=== PATIENT | male | born 1955 | race Caucasian/White ===

== ENCOUNTER 2022-07-03 14:51 | Emergency (ER) | payer OTHER ==
[~2022-07-03] VITALS: Ht 177 cm; Wt 95.0 kg
--- NOTE | 2022-07-03 15:19 | ED Cough/URI ---
General Chief Complaint: Cough/Cold/Flu Symptoms Stated Complaint: FLU-LIKE SYMPTOMS Nursing Triage Note: PT STATES COUGH FOR A FEW DAYS, DIARRHEA, BODY ACHES AND CHILLS, STATES NEG COVID TEST AT WORK Source: patient Exam Limitations: no limitations History of Present Illness Date Seen by Provider: Jul 03, 2022 Time Seen by Provider: 15:15 Initial Comments Patient is a 67-year-old male with a history of high cholesterol, DVT, PE, GERD who presents the ED with flulike symptoms. Started 2 weeks ago with body aches, chills, weakness, cough. Symptoms became worse over the past 2 or 3 days. States he is having chills feeling feverish at home. Nausea without vomiting or diarrhea. Reports worsening cough with clear sputum production. Some shortness of breath with a cough. Denies history of coronary artery disease, CHF, COPD or asthma. Has been taking Mucinex extra strength at home without much improvement. No one else at home with similar symptoms. Had a negative COVID swab today. 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 Patient denies chest pain, abdominal pain, back pain with dysuria, hematuria, headache, dizziness, sore throat, ear pain Allergies and Home Medications Allergies Coded Allergies: No Known Drug Allergies (Unverified , 07/03/22) Patient Home Medication List Home Medication List Reviewed: Yes Benzonatate (Tessalon Perles) 100 Mg Capsule, 200 MG PO TID Prescribed by: ANNE TREVIZO on 07/03/22 165 Doxycycline Monohydrate (Doxycycline Monohydrate) 100 Mg Capsule, 100 MG PO BID Prescribed by: ANNE TREVIZO on 07/03/22 165 Prednisone (Prednisone) 20 Mg Tab, 40 MG PO DAILY Prescribed by: ANNE TREVIZO on 07/03/22 1702 Review of Systems Review of Systems Constitutional: No chills, No diaphoresis, No malaise EENTM: No ear pain, No mouth pain Respiratory: cough, short of breath Cardiovascular: No chest pain Gastrointestinal: No abdominal pain, No diarrhea; nausea; No vomiting Genitourinary: No decreased output, No discharge Musculoskeletal: No back pain, No joint pain Skin: No change in color, No change in hair/nails All Other Systems Reviewed Negative Unless Noted: Yes Past Iihdiys-Sanxil-Zsmlph Hx Patient Social History Tobacco Use?: Yes Smoking Status: Former Smoker Substance use?: No Alcohol Use?: No Past Medical History Surgery/Hospitalization HX: ANGELLA, RT SHOULDER Physical Exam Vital Signs - First Documented 07/03/22 15:02 Temp 37.3 Pulse 85 Resp 20 B/P (MAP) 149/85 (106) Pulse Ox 94 O2 Delivery Room Air Capillary Refill : Less Than 3 Seconds Height: '" Weight: lbs. oz. kg; 30.00 BMI Method: General Appearance: WD/WN, no apparent distress Eyes: Bilateral Eye Normal Inspection, Bilateral Eye PERRL, Bilateral Eye EOMI HEENT: PERRL/EOMI, normal ENT inspection, TMs normal, pharynx normal Neck: non-tender, full range of motion, supple, normal inspection Respiratory: chest non-tender, lungs clear, normal breath sounds, no respiratory distress, no accessory muscle use Cardiovascular: regular rate, rhythm, no edema, no gallop, no JVD Gastrointestinal: normal bowel sounds, non tender, soft, no organomegaly Extremities: normal range of motion, non-tender, normal inspection, no pedal edema 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, no motor/sensory deficits, alert, normal mood/affect, oriented x 3 Skin: normal color, warm/dry Progress/Results/Core Measures Suspected Sepsis SIRS Temperature: Pulse: 85 Respiratory Rate: 20 Laboratory Tests 07/03/22 15:19: White Blood Count 9.6 Blood Pressure 149 /85 Mean: 106 Laboratory Tests 07/03/22 15:19: Creatinine 0.87, Platelet Count 286, Total Bilirubin 0.5 Results/Orders Lab Results Laboratory Tests Test 07/03/22 15:03 07/03/22 15:19 Range/Units Influenza Type A (RT-PCR) Not Detected Not Detecte Influenza Type B (RT-PCR) Not Detected Not Detecte SARS-CoV-2 RNA (RT-PCR) Not Detected Not Detecte White Blood Count 9.6 4.3-11.0 10^3/uL Red Blood Count 5.08 4.30-5.52 10^6/uL Hemoglobin 14.6 13.3-17.7 g/dL Hematocrit 45 40-54 % Mean Corpuscular Volume 88 80-99 fL Mean Corpuscular Hemoglobin 29 25-34 pg Mean Corpuscular Hemoglobin Concent 33 32-36 g/dL Red Cell Distribution Width 13.6 10.0-14.5 % Platelet Count 286 130-400 10^3/uL Mean Platelet Volume 9.3 9.0-12.2 fL Immature Granulocyte % (Auto) 1 % Neutrophils (%) (Auto) 69 42-75 % Lymphocytes (%) (Auto) 19 12-44 % Monocytes (%) (Auto) 8 0-12 % Eosinophils (%) (Auto) 3 0-10 % Basophils (%) (Auto) 0 0-10 % Neutrophils # (Auto) 6.6 1.8-7.8 10^3/uL Lymphocytes # (Auto) 1.9 1.0-4.0 10^3/uL Monocytes # (Auto) 0.8 0.0-1.0 10^3/uL Eosinophils # (Auto) 0.3 0.0-0.3 10^3/uL Basophils # (Auto) 0.0 0.0-0.1 10^3/uL Immature Granulocyte # (Auto) 0.1 0.0-0.1 10^3/uL Sodium Level 138 135-145 MMOL/L Potassium Level 4.4 3.6-5.0 MMOL/L Chloride Level 104 98-107 MMOL/L Carbon Dioxide Level 24 21-32 MMOL/L Anion Gap 10 5-14 MMOL/L Blood Urea Nitrogen 19 H 7-18 MG/DL Creatinine 0.87 0.60-1.30 MG/DL Estimat Glomerular Filtration Rate 93 BUN/Creatinine Ratio 22 Glucose Level 125 H 70-105 MG/DL Calcium Level 9.5 8.5-10.1 MG/DL Corrected Calcium 9.2 8.5-10.1 MG/DL Total Bilirubin 0.5 0.1-1.0 MG/DL Aspartate Amino Transf (AST/SGOT) 20 5-34 U/L Alanine Aminotransferase (ALT/SGPT) 19 0-55 U/L Alkaline Phosphatase 64 40-136 U/L B-Type Natriuretic Peptide 18.4 <100.0 PG/ML Total Protein 8.2 6.4-8.2 GM/DL Albumin 4.4 3.2-4.5 GM/DL My Orders Orders - CATERINA HUTCHISON 19 Inhouse Test (07/03/22 14:55) Influenza A And B By Pcr (07/03/22 14:55) Cbc With Automated Diff (07/03/22 15:14) Comprehensive Metabolic Panel (07/03/22 15:14) Chest 1 View, Ap/Pa Only (07/03/22 15:14) Iv/Invasive Line Insertion .IV INSERT (07/03/22 15:14) Bnp [place] (07/03/22 15:14) Methylprednisolone Sod Succ (Solu-Medrol (07/03/22 15:30) Albuterol/Ipra Inhalation Soln (Duoneb I (07/03/22 15:30) Svn Small Volume Nebulizer (07/03/22 15:19) Albuterol Pre-Mix Nebs (Rt) (Proventil (07/03/22 16:45) Svn Small Volume Nebulizer (07/03/22 16:31) Rx-Doxycycline Tablet (Rx-Vibramycin Tab (07/03/22 16:45) Rx-Albuterol Inhaler (Rx-Ventolin Hfa In (07/03/22 16:45) Medications Given in ED Current Medications Medications Dose Ordered Sig/Michelle Route Start Time Stop Time Status Last Admin Dose Admin Albuterol Sulfate 1 gm ONCE ONCE IH 07/03/22 16:45 07/03/22 16:46 DC 07/03/22 16:46 1 GM Albuterol Sulfate 2.5 mg ONCE ONCE INH 07/03/22 16:45 07/03/22 16:46 DC 07/03/22 16:44 2.5 MG Albuterol/ Ipratropium 3 ml ONCE ONCE INH 07/03/22 15:30 07/03/22 15:31 DC 07/03/22 15:27 3 ML Doxycycline Hyclate 100 mg ONCE ONCE PO 07/03/22 16:45 07/03/22 16:46 DC 07/03/22 16:46 100 MG Methylprednisolone Sodium Succinate 80 mg ONCE ONCE IV 07/03/22 15:30 07/03/22 15:31 DC 07/03/22 15:26 80 MG Vital Signs/I&O 07/03/22 07/03/22 07/03/22 15:02 15:10 17:03 Temp 37.3 37.1 Pulse 85 103 Resp 20 20 B/P (MAP) 149/85 (106) 116/73 Pulse Ox 94 97 O2 Delivery Room Air Room Air Room Air Capillary Refill : Less Than 3 Seconds Blood Pressure Mean: 106 Departure Communication (PCP) No previous ER visits or outpatient records to review. History of high cholesterol, GERD, DVT and PE. No history of coronary artery disease, CHF, COPD, asthma. Patient with flulike symptoms for the past 2 weeks. Worsening cough and shortness of breath over the past 2 days. Denies of any chest pain, abdominal pain, vomiting or diarrhea. Patient is afebrile, stable vital signs. Diminished lung sounds bilateral. He has no abdominal tenderness. Differential diagnosis of viral syndrome, pneumonia, bronchitis, reactive airway disease, chf due to worsening symptoms, age, CBC, CMP, BNP and chest x-ray was ordered. CBC and CMP was otherwise unremarkable. Normal BNP. Chest x-ray was negative for pneumonia, pneumothorax. Patient Was given a DuoNeb breathing treatment with IV Solu-Medrol with improvement of breath sounds and the feeling of shortness of breath. Patient oxygen remained in the lower 90s between 92 to 94%. Patient Was given a second breathing treatment of albuterol with improvement near 98%. He states that breathing feels much better at this time after the second breathing treatment. He has no history of COPD or asthma. COVID and influenza was negative. Suspect viral versus atypical infection. Due to worsening cough and potential atypical infection patient will be discharged with doxycycline, albuterol. Patient was requesting something for the cough. We will provide Tessalon Perles. Patient lives in [place]. Sent prescription to the [facility] pharmacy. Recommend follow-up your PCP in 2 to 3 days for reevaluation. Return precaution were discussed. Impression Primary Impression: Upper respiratory infection Disposition: 01 HOME, SELF-CARE Condition: Stable Departure-Patient Inst. Decision time for Depature: 16:20 Referrals: [facility] NO,LOCAL PHYSICIAN (PCP) Primary Care Physician Patient Instructions: Acute Bronchitis, Adult (DC) Scripts Prednisone (Prednisone) 20 Mg Tab 40 MG PO DAILY for 4 Days, #8 TAB Prov: CATERINA HUTCHISON 07/03/22 Benzonatate (TESSALON PERLES) 100 Mg Capsule 200 MG PO TID, #16 CAP Prov: CATERINA HUTCHISON 07/03/22 Doxycycline Monohydrate (Doxycycline Monohydrate) 100 Mg Capsule 100 MG PO BID for 6 Days, #12 CAP Prov: CATERINA HUTCHISON 07/03/22 CATERINA HUTCHISON Jul 03, 2022 15:19
[2022-07-03] MEDS ORDERED: methylPREDNISolone 40 MG/ML (Solu-MEDROL) VIAL IV ONE (15:30)
[2022-07-03] MEDS ORDERED: RT-ALBUTEROL/IPRATROPIUM 3 ML (DUONEB) VIAL INH ONE (15:30)
[2022-07-03 15:31] LABS: BASOPHILS % (AUTO) 0 % (0-10); EOSINOPHILS # (AUTO) 0.3 10^3/uL (0.0-0.3); EOSINOPHILS % (AUTO) 3 % (0-10); HEMATOCRIT 45 % (40-54); HEMOGLOBIN 14.6 g/dL (13.3-17.7); LYMPHOCYTES # (AUTO) 1.9 10^3/uL (1.0-4.0); LYMPHOCYTES % (AUTO) 19 % (12-44); MEAN CORPUSCULAR HEMOGLOBIN 29 pg (25-34); MEAN CORPUSCULAR HGB CONC 33 g/dL (32-36); MEAN CORPUSCULAR VOLUME 88 fL (80-99); MEAN PLATELET VOLUME 9.3 fL (9.0-12.2); MONOCYTES # (AUTO) 0.8 10^3/uL (0.0-1.0); MONOCYTES % (AUTO) 8 % (0-12); NEUTROPHILS # (AUTO) 6.6 10^3/uL (1.8-7.8); NEUTROPHILS % (AUTO) 69 % (42-75); PLATELET COUNT 286 10^3/uL (130-400); WHITE BLOOD COUNT 9.6 10^3/uL (4.3-11.0)
[2022-07-03 15:39] LABS: ALBUMIN 4.4 GM/DL (3.2-4.5); POTASSIUM 4.4 MMOL/L (3.6-5.0)
[2022-07-03 15:40] LABS: CALCIUM 9.5 MG/DL (8.5-10.1)
--- NOTE | 2022-07-03 15:40 | Diagnostic Imaging Report ---
Indication: Cough Findings: Lungs clear. No failure, effusion or pneumothorax. Impression: No acute-appearing abnormality. Dictated by: Dictated on workstation # [id number]
[2022-07-03 15:41] LABS: TOTAL PROTEIN 8.2 GM/DL (6.4-8.2)
[2022-07-03 15:43] LABS: BILIRUBIN,TOTAL 0.5 MG/DL (0.1-1.0)
[2022-07-03 15:45] LABS: CREATININE SERUM 0.87 MG/DL (0.60-1.30)
[2022-07-03] MEDS ORDERED: RT-ALBUTEROL SULF 2.5 MG/3 ML PRE-MIX VIAL INH ONE (16:45)
[2022-07-03] MEDS ORDERED: RX-ALBUTEROL INHALER 8.5 GM HFA (PROAIR) IH ONE (16:45)
[2022-07-03] MEDS ORDERED: RX-DOXYCYCLINE 100 MG (VIBRAMYCIN) TAB PPK#2 PO ONE (16:45)
[2022-07-03] MEDS ORDERED: DOXY-444 PO (16:59)
[2022-07-03] MEDS ORDERED: BENZ100C18 PO (16:59)
[2022-07-03] MEDS ORDERED: PRD20T PO (17:02)
[2022-07-03 17:03] VITALS: BP 116/73
== END 2022-07-03 17:02 | disposition home or self-care (01) ==
LOC: ER 14:57
DX: J06.9 Acute upper respiratory infection, unspecified (principal); Z86.711 Personal history of pulmonary embolism; Z79.01 Long term (current) use of anticoagulants; Z87.891 Personal history of nicotine dependence; Z28.310 Unvaccinated for COVID-19; Z20.822 Contact with and (suspected) exposure to COVID-19
CPT/HCPCS: 36415; 71045; 80053; 83880; 85025; 87636

== ENCOUNTER 2022-12-10 17:49 | Emergency (ER) | payer OTHER ==
[~2022-12-10 17:49] MED LIST: BENZ100C18 PO; DOXY-444 PO; PRD20T PO
[2022-12-10] MEDS ORDERED: NS IV 1000 ML 1,000 ML IV STA (18:14)
[2022-12-10] MEDS ORDERED: KETOROLAC INJ 30 MG/ML VIAL IVP ONE (18:15)
--- NOTE | 2022-12-10 18:17 | ED Back Pain ---
General Chief Complaint: Back Problems Stated Complaint: BACK PAIN | Source of Information: Patient Exam Limitations: No Limitations History of Present Illness Date Seen by Provider: Dec 10, 2022 Time Seen by Provider: 18:15 Initial Comments Patient is a 67-year-old male who presents ED with left flank pain. Symptoms started 1 hour ago. Patient was walking into the kitchen. Sharp stabbing pain with no radiation. [place] nauseous without vomiting. Pain seems to be subsiding. Denies of any pain with urination frequent urination or dark urine. No history of previous symptoms. History of cholecystectomy. Denies chest pain, cough, shortness of breath, headache or dizziness. Denies taking anything for pain. D enies of any specific injury. Allergies and Home Medications Allergies Coded Allergies: No Known Drug Allergies (Unverified , 07/03/22) Patient Home Medication List Home Medication List Reviewed: Yes Benzonatate (Tessalon Perles) 100 Mg Capsule, 200 MG PO TID Prescribed by: ANNE TREVIZO on 07/03/221658 Cephalexin (Cephalexin) 500 Mg Tablet, 500 MG PO BID Prescribed by: ANNE TREVIZO on 12/10/222013 Doxycycline Monohydrate (Doxycycline Monohydrate) 100 Mg Capsule, 100 MG PO BID Prescribed by: ANNE TREVIZO on 07/03/221658 Hydrocodone/Acetaminophen (Hydrocodone-Acetamin 5-325 mg) 5 Mg-325 Mg Tablet, 1 TAB PO Q4H PRN for PAIN-MODERATE (5-7) Prescribed by: ANNE TREVIZO on 12/10/221918 Ondansetron (Ondansetron Odt) 4 Mg Tab.rapdis, 4 MG SL Q4H PRN for NAUSEA/VOMITING Prescribed by: ANNE TREVIZO on 12/10/221918 Prednisone (Prednisone) 20 Mg Tab, 40 MG PO DAILY Prescribed by: ANNE TREVIZO on 07/03/221701 Tamsulosin HCl (Flomax) 0.4 Mg Cap, 0.4 MG PO DAILY Prescribed by: ANNE TREVIZO on 12/10/221918 Review of Systems Constitutional: No chills, No diaphoresis EENTM: No ear discharge, No ear pain, No blurred vision Respiratory: No cough, No dyspnea on exertion Cardiovascular: No chest pain Gastrointestinal: No abdominal pain, No diarrhea, No nausea, No vomiting Genitourinary: No decreased output, No discharge Musculoskeletal: back pain; No joint pain, No muscle pain Skin: No change in color, No change in hair/nails All Other Systems Reviewed Negative Unless Noted: Yes Past Oxpwjbg-Pycyig-Hfrlhe Hx Patient Social History Tobacco Use?: No Substance use?: No Alcohol Use?: No Pt feels they are or have been: No Past Medical History Surgery/Hospitalization HX: ANGELLA, RT SHOULDER, DVT RT LEG Physical Exam Vital Signs Vital Signs - First Documented 12/10/22 18:02 Pulse 66 Resp 16 B/P (MAP) 131/96 (108) Pulse Ox 95 O2 Delivery Room Air Capillary Refill : Less Than 3 Seconds Height, Weight, BMI Height: '" Weight: lbs. oz. kg; 30.00 BMI Method: General Appearance: No Apparent Distress, WD/WN HEENT: PERRL/EOMI, TMs Normal, Normal ENT Inspection, Pharynx Normal Neck: Full Range of Motion, Normal Inspection, Non Tender, Supple Cardiovascular: Regular Rate, Rhythm, No Edema, No Gallop, No JVD Respiratory: Chest Non Tender, Lungs Clear, Normal Breath Sounds, No Accessory Muscle Use, No Respiratory Distress Gastrointestinal: Normal Bowel Sounds, No Organomegaly, No Pulsatile Mass, Non Tender Back: CVA Tenderness (L) Extremity: Normal Capillary Refill, Normal Inspection, Normal Range of Motion, Non Tender Neurologic/Psychiatric: Alert, Oriented x3, No Motor/Sensory Deficits, Normal Mood/Affect, 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 Skin: Normal Color, Warm/Dry Progress/Results/Core Measures Results/Orders Lab Results Laboratory Tests Test 12/10/22 18:08 12/10/22 19:20 Range/Units White Blood Count 10.1 4.3-11.0 10^3/uL Red Blood Count 5.16 4.30-5.52 10^6/uL Hemoglobin 14.8 13.3-17.7 g/dL Hematocrit 45 40-54 % Mean Corpuscular Volume 87 80-99 fL Mean Corpuscular Hemoglobin 29 25-34 pg Mean Corpuscular Hemoglobin Concent 33 32-36 g/dL Red Cell Distribution Width 14.4 10.0-14.5 % Platelet Count 309 130-400 10^3/uL Mean Platelet Volume 9.4 9.0-12.2 fL Immature Granulocyte % (Auto) 0 % Neutrophils (%) (Auto) 64 42-75 % Lymphocytes (%) (Auto) 25 12-44 % Monocytes (%) (Auto) 7 0-12 % Eosinophils (%) (Auto) 3 0-10 % Basophils (%) (Auto) 1 0-10 % Neutrophils # (Auto) 6.5 1.8-7.8 10^3/uL Lymphocytes # (Auto) 2.6 1.0-4.0 10^3/uL Monocytes # (Auto) 0.7 0.0-1.0 10^3/uL Eosinophils # (Auto) 0.3 0.0-0.3 10^3/uL Basophils # (Auto) 0.1 0.0-0.1 10^3/uL Immature Granulocyte # (Auto) 0.0 0.0-0.1 10^3/uL Sodium Level 140 135-145 MMOL/L Potassium Level 4.0 3.6-5.0 MMOL/L Chloride Level 107 98-107 MMOL/L Carbon Dioxide Level 22 21-32 MMOL/L Anion Gap 11 5-14 MMOL/L Blood Urea Nitrogen 19 H 7-18 MG/DL Creatinine 0.91 0.60-1.30 MG/DL Estimat Glomerular Filtration Rate 91 BUN/Creatinine Ratio 21 Glucose Level 97 70-105 MG/DL Calcium Level 9.3 8.5-10.1 MG/DL Corrected Calcium 8.9 8.5-10.1 MG/DL Total Bilirubin 0.3 0.1-1.0 MG/DL Aspartate Amino Transf (AST/SGOT) 23 5-34 U/L Alanine Aminotransferase (ALT/SGPT) 25 0-55 U/L Alkaline Phosphatase 61 40-136 U/L Total Protein 7.1 6.4-8.2 GM/DL Albumin 4.5 3.2-4.5 GM/DL Lipase 32 8-78 U/L Urine Color YELLOW Urine Clarity CLEAR Urine pH 5.0 5-9 Urine Specific [place] >=1.030 1.016-1.022 Urine Protein 2+ H NEGATIVE Urine Glucose (UA) NEGATIVE NEGATIVE Urine Ketones TRACE H NEGATIVE Urine Nitrite NEGATIVE NEGATIVE Urine Bilirubin 1+ H NEGATIVE Urine Urobilinogen 0.2 < = 1.0 MG/DL Urine Leukocyte Esterase NEGATIVE NEGATIVE Urine RBC (Auto) 3+ H NEGATIVE Urine RBC TNTC H /HPF Urine WBC 5-10 H /HPF Urine Squamous Epithelial Cells 0-2 /HPF Urine Crystals NONE /LPF Urine Bacteria FEW H /HPF Urine Casts NONE /LPF Urine Mucus MODERATE H /LPF Urine Culture Indicated YES My Orders Orders - CATERINA HUTCHISON Ua Culture If Indicated (12/10/22 18:09) Cbc With Automated Diff (12/10/22 18:14) Comprehensive Metabolic Panel (12/10/22 18:14) Lipase (12/10/22 18:14) Ct Abd/Pelvis Wo(Kidney Stone) (12/10/22 18:14) Ns Iv 1000 Ml (Ns Iv 1000 Ml) (12/10/22 18:14) Ketorolac Injection (Ketorolac Injection (12/10/22 18:15) Urine Culture (12/10/22 19:20) Rx-Hydrocodone/Apap 5-325 Mg (Rx-Vicodin (12/10/22 20:15) Medications Given in ED Current Medications Medications Dose Ordered Sig/Michelle Route Start Time Stop Time Status Last Admin Dose Admin Ketorolac Tromethamine 30 mg ONCE ONCE IVP 12/10/22 18:15 12/10/22 18:16 DC 12/10/22 18:41 30 MG Vital Signs/I&O 12/10/22 18:02 Pulse 66 Resp 16 B/P (MAP) 131/96 (108) Pulse Ox 95 O2 Delivery Room Air Departure Communication (PCP) Reviewed previous ER visit, H&P, lab testing. Differential diagnosis, urolithiasis, nephrolithiasis, UTI, diverticulitis. acute onset of left flank pain. Pain does not radiate. Nausea without vomiting. No diarrhea. History of cholecystectomy. Patient in mild distress on arrival. CBC, CMP, lipase, urinalysis was ordered. CBC, CMP grossly unremarkable. Urinalysis positive for hematuria with white blood cells. Concerning for lithiasis. Patient was started on liter fluid. Toradol with improvement of pain. CT abdomen pelvis shows A 0.3 cm calcification within the left pelvis which may relate to a nonobstructing ureterolith versus simply a vascular calcification. Concern for urolithiasis. Patient is currently pain-free. Vital signs remained stable. Normal kidney function. Patient will be discharged with few days worth of hydrocodone as needed. Zofran for nausea. Flomax to help urinate. Due to the positive white blood cells with pending culture will discharge with Keflex for potential UTI. Provided urology outpatient follow-up. Discussed with patient that this will likely pass on its own. Recommend staying hydrated. If any increasing pain, passing blood clots, fever or chills to return back to ED. Follow-up your PCP in 2 to 3 days for reevaluation. Impression Primary Impression: Ureterolithiasis Disposition: HOME, SELF-CARE Condition: Stable Departure-Patient Inst. Decision time for Depature: 19:18 Referrals: ALIE BRUNSON APRN (PCP/Family) Primary Care Physician Patient Instructions: Kidney Stone, Adult ED Add. Discharge Instructions: Recommend following up with [facility] urology. [phone]. Take pain medication as needed. Flomax to help urinate. Drink plenty of fluids. Zofran for nausea. Keflex for potential underlying UTI. Return back to ED if symptoms worsen All discharge instructions reviewed with patient and/or family. Voiced understanding. Scripts Cephalexin (Cephalexin) 500 Mg Tablet 500 MG PO BID for 7 Days, #14 TAB Prov: CATERINA HUTCHISON 12/10/22 Tamsulosin HCl (Flomax) 0.4 Mg Cap 0.4 MG PO DAILY, #15 CAP Prov: CATERINA HUTCHISON 12/10/22 Ondansetron (Ondansetron Odt) 4 Mg Tab.rapdis 4 MG SL Q4H PRN for NAUSEA/VOMITING, #6 TAB Prov: CATERINA HUTCHISON 12/10/22 Hydrocodone/Acetaminophen (Hydrocodone-Acetamin 5-325 mg) 5 Mg-325 Mg Tablet 1 TAB PO Q4H PRN for PAIN-MODERATE (5-7), #8 TAB Prov: CATERINA HUTCHISON 12/10/22 CATERINA HUTCHISON Dec 10, 2022 18:16
[2022-12-10 18:26] LABS: BASOPHILS # (AUTO) 0.1 10^3/uL (0.0-0.1); BASOPHILS % (AUTO) 1 % (0-10); EOSINOPHILS # (AUTO) 0.3 10^3/uL (0.0-0.3); EOSINOPHILS % (AUTO) 3 % (0-10); HEMATOCRIT 45 % (40-54); HEMOGLOBIN 14.8 g/dL (13.3-17.7); LYMPHOCYTES # (AUTO) 2.6 10^3/uL (1.0-4.0); LYMPHOCYTES % (AUTO) 25 % (12-44); MEAN CORPUSCULAR HEMOGLOBIN 29 pg (25-34); MEAN CORPUSCULAR HGB CONC 33 g/dL (32-36); MEAN CORPUSCULAR VOLUME 87 fL (80-99); MEAN PLATELET VOLUME 9.4 fL (9.0-12.2); MONOCYTES # (AUTO) 0.7 10^3/uL (0.0-1.0); MONOCYTES % (AUTO) 7 % (0-12); NEUTROPHILS # (AUTO) 6.5 10^3/uL (1.8-7.8); NEUTROPHILS % (AUTO) 64 % (42-75); PLATELET COUNT 309 10^3/uL (130-400); WHITE BLOOD COUNT 10.1 10^3/uL (4.3-11.0)
[2022-12-10 18:37] LABS: ALBUMIN 4.5 GM/DL (3.2-4.5)
[2022-12-10 18:39] LABS: CALCIUM 9.3 MG/DL (8.5-10.1)
[2022-12-10 18:40] LABS: TOTAL PROTEIN 7.1 GM/DL (6.4-8.2)
[2022-12-10 18:42] LABS: BILIRUBIN,TOTAL 0.3 MG/DL (0.1-1.0)
[2022-12-10 18:44] LABS: CREATININE SERUM 0.91 MG/DL (0.60-1.30)
--- NOTE | 2022-12-10 19:09 | Diagnostic Imaging Report ---
PROCEDURE: CT urinary tract, rule out kidney stone. TECHNIQUE: Multiple contiguous axial images were obtained through the abdomen and pelvis without the use of intravenous contrast. Auto Exposure Controls were utilized during the CT exam to meet ALARA standards for radiation dose reduction. INDICATION: Left flank pain COMPARISON: None available. FINDINGS: Visualized lung bases are clear. Small hiatal hernia. Cholecystectomy. The unenhanced liver and spleen are unremarkable. The adrenal glands are unremarkable. The pancreas is unremarkable. A 0.3 cm calcification is identified either within or immediately adjacent to the distal left ureter, series 2, image 129. There is, however, no hydroureteronephrosis. No additional renal calculi. Moderate vascular calcifications within the abdominal aorta and its branch vessels without aneurysmal dilatation of the abdominal aorta. The urinary bladder is unremarkable. No bowel obstruction or pneumatosis. No significant inflammatory stranding within the right lower quadrant. No significant adenopathy, free air, or free fluid within the abdomen or pelvis. Transitional lumbosacral vertebral body. Mild apex left curvature of the lumbar spine with prominent bridging lateral osteophytes at the L2-L4 level on the right. Scattered osseous degenerative changes without acute osseous abnormality. Small metallic density within the skin surface of the right anterior abdominal wall. IMPRESSION: A 0.3 cm calcification within the left pelvis which may relate to a nonobstructing ureterolith versus simply a vascular calcification. Curvature of the spine with associated prominent bridging osteophytes on the right at L2-L4 with associated transitional lumbosacral vertebral body. Small hiatal hernia. Small metallic density within the skin surface of the right anterior abdominal wall. Dictated by: Dictated on workstation # [id number]
[2022-12-10] MEDS ORDERED: ONDA4TAB11 SL (19:19)
[2022-12-10] MEDS ORDERED: TMSL.4C PO (19:19)
[2022-12-10] MEDS ORDERED: ACHD5005 PO (19:19)
[2022-12-10 20:11] LABS: CLARITY,URINE CLEAR; COLOR,URINE YELLOW; PROTEIN,URINE 2+ (NEGATIVE)
[2022-12-10 20:12] LABS: BACTERIA,URINE FEW /HPF; BILIRUBIN,URINE 1+ (NEGATIVE); GLUCOSE, URINE (UA) NEGATIVE (NEGATIVE); KETONES,URINE TRACE (NEGATIVE); LEUKOCYTE ESTERASE ,URINE NEGATIVE (NEGATIVE); NITRITE,URINE NEGATIVE (NEGATIVE); RBC,URINE TNTC /HPF; SQUAMOUS EPITHELIAL CELL,UR 0-2 /HPF
[2022-12-10] MEDS ORDERED: CEPH500T PO (20:14)
[2022-12-10 20:22] VITALS: BP 131/96
== END 2022-12-10 20:23 | disposition home or self-care (01) ==
LOC: EDUNIT# 17:49 → ER 17:51
DX: N20.1 Calculus of ureter (principal); Z90.49 Acquired absence of other specified parts of digestive tract
CPT/HCPCS: 36415; 74176; 80053; 81000; 83690; 85025; 87088

== ENCOUNTER 2022-12-22 06:27 | Emergency (ER) | payer OTHER ==
[~2022-12-22] VITALS: Ht 172.7 cm; Wt 90.7 kg
[~2022-12-22 06:27] MED LIST changes: +ACHD5005 PO; +CEPH500T PO; +ONDA4TAB11 SL; +TMSL.4C PO
[2022-12-22] MEDS ORDERED: ONDANSETRON INJECTION 4 MG/2 ML (SDV) IVP ONE (06:45)
[2022-12-22] MEDS ORDERED: NS IV 1000 ML 1,000 ML IV STA (06:45)
[2022-12-22] MEDS ORDERED: fentaNYL INJECTION 100 MCG/2 ML VIAL IVP STA (06:45)
--- NOTE | 2022-12-22 06:52 | ED Abdominal Pain ---
General Chief Complaint: Abdominal/GI Problems Stated Complaint: LEFT SIDE PX,POSS KIDNEY STONE Source of Information: Patient Exam Limitations: No Limitations History of Present Illness Date Seen by Provider: Dec 22, 2022 Time Seen by Provider: 06:39 Initial Comments Here with report of left flank pain for the past couple of hours that is 6 or 7 out of 10 and has had intermittent diarrhea over the last 2 to 3 days. Seen last week for possible kidney stone and did have CT scan which showed possible stone versus phlebolith but did have a lot of blood in his urine. Had otherwise normal labs. States that this morning the pain came on and got quite significant and he took a hydrocodone and immediately vomited. He denies fever, chills, upper respiratory symptoms, breathing problems or weakness. Normally follows with the MT out of [place] and gets other MT care in [place]. Denies blood in his urine or stool. States that he is having frequent small bouts of diarrhea. Timing/Duration: 2-3 Days, Getting Worse Severity/Quality: Moderate, Sharp Location: Flank (Left) Radiation: No Radiation Associated Symptoms: No Chest Pain, No Fever/Chills; Nausea/Vomiting; No Shortness of Air, No Weakness Allergies and Home Medications Allergies Coded Allergies: No Known Drug Allergies (Unverified , 07/03/22) Patient Home Medication List Home Medication List Reviewed: Yes Benzonatate (Tessalon Perles) 100 Mg Capsule, 200 MG PO TID Prescribed by: ANNE TREVIZO on 07/03/221658 Cephalexin (Cephalexin) 500 Mg Tablet, 500 MG PO BID Prescribed by: ANNE TREVIZO on 12/10/222013 Doxycycline Monohydrate (Doxycycline Monohydrate) 100 Mg Capsule, 100 MG PO BID Prescribed by: ANNE TREVIZO on 07/03/221658 Hydrocodone/Acetaminophen (Hydrocodone-Acetamin 5-325 mg) 5 Mg-325 Mg Tablet, 1 TAB PO Q4H PRN for PAIN-MODERATE (5-7) Prescribed by: ANNE TREVIZO on 12/10/221918 Ondansetron (Ondansetron Odt) 4 Mg Tab.rapdis, 4 MG SL Q4H PRN for NAUSEA/VOMITING Prescribed by: ANNE TREVIZO on 12/10/221918 Prednisone (Prednisone) 20 Mg Tab, 40 MG PO DAILY Prescribed by: ANNE TREVIZO on 07/03/221701 Tamsulosin HCl (Flomax) 0.4 Mg Cap, 0.4 MG PO DAILY Prescribed by: ANNE TREVIZO on 12/10/221918 Review of Systems Review of Systems Constitutional: see HPI; No chills, No fever EENTM: No Nose Congestion, No Throat Pain Respiratory: Denies Cough, Denies Shortness of Air Cardiovascular: Denies Chest Pain Gastrointestinal: Abdominal Pain, Diarrhea, Nausea, Vomiting Genitourinary: Flank Pain (Left) Musculoskeletal: no symptoms reported Skin: no symptoms reported Psychiatric/Neurological: No Symptoms Reported Past Wkqcnpy-Dclwmv-Gghroy Hx Patient Social History Tobacco Use?: No Use of E-Cig and/or Vaping dev: No Substance use?: No Alcohol Use?: No Past Medical History Surgery/Hospitalization HX: ANGELLA, RT SHOULDER, DVT RT LEG Surgeries: Yes Gallbladder, Orthopedic Respiratory: Yes Pulmonary Embolism Cardiac: Yes Deep Vein Thrombosis, High Cholesterol Neurological: No Gastrointestinal: Yes Gastroesophageal Reflux Family Medical History Reviewed and Corrections made No Pertinent Family Hx Physical Exam Vital Signs Vital Signs - First Documented 12/22/22 06:34 Temp 36.6 Pulse 83 Resp 18 B/P (MAP) 127/82 (97) Pulse Ox 94 O2 Delivery Room Air Capillary Refill : Height/Weight/BMI Height: '" Weight: lbs. oz. kg; 30.00 BMI Method: General Appearance: WD/WN, no apparent distress HEENT: PERRL/EOMI, pharynx normal Neck: full range of motion, supple Respiratory: lungs clear, normal breath sounds Cardiovascular: regular rate, rhythm, no murmur Gastrointestinal: non tender, soft Back: normal inspection, no CVA tenderness, no vertebral tenderness Neurologic/Psychiatric: alert, oriented x 3 Skin: normal color, warm/dry Progress/Results/Core Measures Results/Orders Lab Results Laboratory Tests Test 12/22/22 06:50 12/22/22 08:30 Range/Units White Blood Count 10.6 4.3-11.0 10^3/uL Red Blood Count 5.07 4.30-5.52 10^6/uL Hemoglobin 14.5 13.3-17.7 g/dL Hematocrit 45 40-54 % Mean Corpuscular Volume 89 80-99 fL Mean Corpuscular Hemoglobin 29 25-34 pg Mean Corpuscular Hemoglobin Concent 32 32-36 g/dL Red Cell Distribution Width 14.7 H 10.0-14.5 % Platelet Count 265 130-400 10^3/uL Mean Platelet Volume 9.6 9.0-12.2 fL Immature Granulocyte % (Auto) 0 % Neutrophils (%) (Auto) 73 42-75 % Lymphocytes (%) (Auto) 16 12-44 % Monocytes (%) (Auto) 8 0-12 % Eosinophils (%) (Auto) 3 0-10 % Basophils (%) (Auto) 1 0-10 % Neutrophils # (Auto) 7.7 1.8-7.8 10^3/uL Lymphocytes # (Auto) 1.6 1.0-4.0 10^3/uL Monocytes # (Auto) 0.8 0.0-1.0 10^3/uL Eosinophils # (Auto) 0.3 0.0-0.3 10^3/uL Basophils # (Auto) 0.1 0.0-0.1 10^3/uL Immature Granulocyte # (Auto) 0.0 0.0-0.1 10^3/uL Sodium Level 139 135-145 MMOL/L Potassium Level 3.7 3.6-5.0 MMOL/L Chloride Level 107 98-107 MMOL/L Carbon Dioxide Level 22 21-32 MMOL/L Anion Gap 10 5-14 MMOL/L Blood Urea Nitrogen 16 7-18 MG/DL Creatinine 0.94 0.60-1.30 MG/DL Estimat Glomerular Filtration Rate 88 BUN/Creatinine Ratio 17 Glucose Level 138 H 70-105 MG/DL Calcium Level 9.0 8.5-10.1 MG/DL Corrected Calcium 8.7 8.5-10.1 MG/DL Total Bilirubin 0.6 0.1-1.0 MG/DL Aspartate Amino Transf (AST/SGOT) 15 5-34 U/L Alanine Aminotransferase (ALT/SGPT) 17 0-55 U/L Alkaline Phosphatase 71 40-136 U/L C-Reactive Protein High Sensitivity 3.67 H 0.00-0.50 MG/DL Total Protein 7.5 6.4-8.2 GM/DL Albumin 4.4 3.2-4.5 GM/DL Urine Color YELLOW Urine Clarity CLOUDY Urine pH 5.5 5-9 Urine Specific Rosamond >=1.030 1.016-1.022 Urine Protein 2+ H NEGATIVE Urine Glucose (UA) TRACE H NEGATIVE Urine Ketones NEGATIVE NEGATIVE Urine Nitrite NEGATIVE NEGATIVE Urine Bilirubin 1+ H NEGATIVE Urine Urobilinogen 0.2 < = 1.0 MG/DL Urine Leukocyte Esterase NEGATIVE NEGATIVE Urine RBC (Auto) 3+ H NEGATIVE Urine RBC TNTC H /HPF Urine WBC 2-5 /HPF Urine Squamous Epithelial Cells 0-2 /HPF Urine Crystals NONE /LPF Urine Bacteria MODERATE H /HPF Urine Casts NONE /LPF Urine Mucus LARGE H /LPF Urine Culture Indicated YES My Orders Orders - SISI FARRAR MD Cbc With Automated Diff (12/22/22 06:45) Comprehensive Metabolic Panel (12/22/22 06:45) Hs C Reactive Protein (12/22/22 06:45) Ua Culture If Indicated (12/22/22 06:45) Ondansetron Injection (Ondansetron Inj (12/22/22 06:45) Ns Iv 1000 Ml (Ns Iv 1000 Ml) (12/22/22 06:45) Ed Iv/Invasive Line Start (12/22/22 06:45) Fentanyl Injection (Fentanyl Injection (12/22/22 06:45) Ct Abdomen/Pelvis W (12/22/22 08:03) Iohexol Injection (Omnipaque 350 Mg/Ml 1 (12/22/22 08:15) Received Contrast (Hold Metformin- Contr (12/22/22 08:15) Ns (Ivpb) 100 Ml (Sodium Chloride 0.9% 1 (12/22/22 08:15) Urine Culture (12/22/22 08:30) Medications Given in ED Current Medications Medications Dose Ordered Sig/Michelle Route Start Time Stop Time Status Last Admin Dose Admin Iohexol 100 ml ONCE ONCE IV 12/22/22 08:15 12/22/22 08:18 DC 12/22/22 08:38 80 ML Ondansetron HCl 4 mg ONCE ONCE IVP 12/22/22 06:45 12/22/22 06:49 DC 12/22/22 06:58 4 MG Sodium Chloride 100 ml ONCE ONCE IV 12/22/22 08:15 12/22/22 08:18 DC 12/22/22 08:38 80 ML Vital Signs/I&O 12/22/22 06:34 Temp 36.6 Pulse 83 Resp 18 B/P (MAP) 127/82 (97) Pulse Ox 94 O2 Delivery Room Air Progress Progress Note : Progress Note Seen and evaluated. IV, labs including CBC, CMP and CRP as well as UA ordered. Saline 1 L bolus, fentanyl 50 mcg IV and Zofran 4 mg IV ordered. Anticipate CT abdomen pelvis with contrast depending on findings. I have reviewed previous visit a little over a week ago and reviewed CT scan films and labs. There was a question of a small stone on the left. Due to markedly increasing pain and persistent intermittent diarrhea, likely repeat the scan. This was discussed with patient and family who agree. Monitor patient. Differential diagnosis includes renal stone, diverticulitis, inflammatory bowel disease, electrolyte abnormality, dehydration 0830: CT abdomen and pelvis has been ordered. CBC is grossly normal. CMP does show normal electrolytes and normal creatinine. CRP is elevated. UA is pending. Monitor patient. 1008: CT abdomen pelvis reviewed by me and there is probable stone at the area of the UVJ/bladder on the left my interpretation. Radiology report reviewed and agrees. UA reviewed and he does have reds and whites with large bacteria but there is nitrite negative at this point. Overall he is feeling much better and I believe this is because the stone moved to or just into the bladder. I did discuss with him about follow-up with urology. He still has pain medicine at home. He is not currently on antibiotic and previously was on cefdinir which gave him diarrhea. We will initiate outpatient cephalexin and [facility] will [facility]. We will have him strain his urine. Discharged home with return precautions. Patient verbalized understanding instructions and agreement with plan. Diagnostic Imaging Diagonstic Imaging: CT Plain Films/CT/US/NM/MRI: abdomen, pelvis Comments [facility] [place], [place] NAME: ARLIN JUAN [facility] REC#: [id number] PT STATUS: REG ER : 1955 PHYSICIAN: SISI FARRAR MD ADMIT DATE: 12/22/22/ER Draft Date of Exam:12/22/22 CT ABDOMEN/PELVIS W INDICATION: Left flank pain, recently passed stone, hematuria. TECHNIQUE: Multiple contiguous axial images were obtained through the abdomen and pelvis after administration of intravenous contrast. Auto Exposure Controls were utilized during the CT exam to meet ALARA standards for radiation dose reduction. All CT scans use one or more of the following dose optimizing techniques: automated exposure control, MA and/or KvP adjustment based on patient size and exam type or iterative reconstruction. COMPARISON: Noncontrast study of 12/10/2022. FINDINGS: The visualized portions of the lung bases are clear. There are no pleural fluid collections. There is a moderate-sized hiatal hernia. There is no free intraperitoneal air. The liver shows no focal lesion. The gallbladder is absent. The spleen, adrenals, and pancreas all appear normal. The kidneys bilaterally show no hydronephrosis or intrarenal calculi. There is an oblong calcification near the region of the bladder wall which may either be right at the UVJ or just into the bladder. The stone measures about 6 mm in long axis and 3 mm in short axis. On the previous study, this had been a few centimeters more proximal in the ureter. The visualized bowel loops appear unremarkable. There are stable degenerative changes in the lumbar spine. IMPRESSION: Compared to the previous study, the stone which had been in the distal ureter in the mid pelvis has now passed distally and is either at the UVJ or just into the bladder. There does not appear to be significant hydronephrosis. There is no acute finding otherwise seen. There is a moderate sized hiatal hernia. Dictated on workstation # [id number] Dict: 12/22/22 0917 Trans: 12/22/22 0928 [id number] Interpreted by: ERIKA CAMPOS MD Electronically signed by: Departure Impression Primary Impression: Left ureteral stone Disposition: HOME, SELF-CARE Condition: Improved Departure-Patient Inst. Decision time for Depature: 10:20 Referrals: ALIE BRUNSON APRN (PCP/Family) Primary Care Physician Patient Instructions: Kidney Stone, Adult ED, How to Strain Your Urine Add. Discharge Instructions: All discharge instructions reviewed with patient and/or family. Voiced understanding. Strain your urine to see if you can collect the stone. This will help you identify when the stone is passed. [facility]. Return for worse pain, fever, vomiting, weakness, breathing problems or other concerns as needed. Take medications as directed. If you are not taking prescribed pain medicine, you may take Tylenol/acetaminophen 1000 mg every 6-8 hours as needed for pain. You may take ibuprofen 600 mg every 8 hours as needed for pain as well. Drink plenty of fluids. Scripts Cephalexin (Cephalexin) 500 Mg Capsule 500 MG PO BID for 5 Days, #10 CAP 0 Refills Prov: SISI FARRAR MD 12/22/22 SISI FARRAR MD Dec 22, 2022 06:52
[2022-12-22 06:58] LABS: BASOPHILS # (AUTO) 0.1 10^3/uL (0.0-0.1); BASOPHILS % (AUTO) 1 % (0-10); EOSINOPHILS # (AUTO) 0.3 10^3/uL (0.0-0.3); EOSINOPHILS % (AUTO) 3 % (0-10); HEMATOCRIT 45 % (40-54); HEMOGLOBIN 14.5 g/dL (13.3-17.7); LYMPHOCYTES # (AUTO) 1.6 10^3/uL (1.0-4.0); LYMPHOCYTES % (AUTO) 16 % (12-44); MEAN CORPUSCULAR HEMOGLOBIN 29 pg (25-34); MEAN CORPUSCULAR HGB CONC 32 g/dL (32-36); MEAN CORPUSCULAR VOLUME 89 fL (80-99); MEAN PLATELET VOLUME 9.6 fL (9.0-12.2); MONOCYTES # (AUTO) 0.8 10^3/uL (0.0-1.0); MONOCYTES % (AUTO) 8 % (0-12); NEUTROPHILS # (AUTO) 7.7 10^3/uL (1.8-7.8); NEUTROPHILS % (AUTO) 73 % (42-75); PLATELET COUNT 265 10^3/uL (130-400); WHITE BLOOD COUNT 10.6 10^3/uL (4.3-11.0)
[2022-12-22 07:24] LABS: ALBUMIN 4.4 GM/DL (3.2-4.5); BILIRUBIN,TOTAL 0.6 MG/DL (0.1-1.0); CREATININE SERUM 0.94 MG/DL (0.60-1.30); POTASSIUM 3.7 MMOL/L (3.6-5.0); TOTAL PROTEIN 7.5 GM/DL (6.4-8.2)
[2022-12-22] MEDS ORDERED: NS 100 ML (IVPB) BAG IV ONE (08:15)
[2022-12-22] MEDS ORDERED: HOLD METFORMIN - RECEIVED CONTRAST 20 ML VIAL IV SCH (08:15)
[2022-12-22] MEDS ORDERED: IOHEXOL 350 MG/ML 100 ML (OMNIPAQUE 350) VIAL IV ONE (08:15)
[2022-12-22 08:44] LABS: CLARITY,URINE CLOUDY; COLOR,URINE YELLOW; PH,URINE 5.5 (5-9)
[2022-12-22 08:45] LABS: BILIRUBIN,URINE 1+ (NEGATIVE); GLUCOSE, URINE (UA) TRACE (NEGATIVE); KETONES,URINE NEGATIVE (NEGATIVE); LEUKOCYTE ESTERASE ,URINE NEGATIVE (NEGATIVE); NITRITE,URINE NEGATIVE (NEGATIVE); PROTEIN,URINE 2+ (NEGATIVE)
[2022-12-22 08:53] LABS: BACTERIA,URINE MODERATE /HPF; RBC,URINE TNTC /HPF; SQUAMOUS EPITHELIAL CELL,UR 0-2 /HPF
--- NOTE | 2022-12-22 09:30 | Diagnostic Imaging Report ---
INDICATION: Left flank pain, recently passed stone, hematuria. TECHNIQUE: Multiple contiguous axial images were obtained through the abdomen and pelvis after administration of intravenous contrast. Auto Exposure Controls were utilized during the CT exam to meet ALARA standards for radiation dose reduction. All CT scans use one or more of the following dose optimizing techniques: automated exposure control, MA and/or KvP adjustment based on patient size and exam type or iterative reconstruction. COMPARISON: Noncontrast study of 12/10/2022. FINDINGS: The visualized portions of the lung bases are clear. There are no pleural fluid collections. There is a moderate-sized hiatal hernia. There is no free intraperitoneal air. The liver shows no focal lesion. The gallbladder is absent. The spleen, adrenals, and pancreas all appear normal. The kidneys bilaterally show no hydronephrosis or intrarenal calculi. There is an oblong calcification near the region of the bladder wall which may either be right at the UVJ or just into the bladder. The stone measures about 6 mm in long axis and 3 mm in short axis. On the previous study, this had been a few centimeters more proximal in the ureter. The visualized bowel loops appear unremarkable. There are stable degenerative changes in the lumbar spine. IMPRESSION: Compared to the previous study, the stone which had been in the distal ureter in the mid pelvis has now passed distally and is either at the UVJ or just into the bladder. There does not appear to be significant hydronephrosis. There is no acute finding otherwise seen. There is a moderate sized hiatal hernia. Dictated by: Dictated on workstation # [id number]
[2022-12-22] MEDS ORDERED: CEPH500C PO (10:22)
[2022-12-22 10:25] VITALS: BP 127/82
== END 2022-12-22 10:26 | disposition home or self-care (01) ==
LOC: EDUNIT# 06:27 → ER 06:32
DX: N20.1 Calculus of ureter (principal); Z28.310 Unvaccinated for COVID-19
CPT/HCPCS: 36415; 74177; 80053; 81000; 85025; 86141; 87077; 87088

== ENCOUNTER 2022-12-26 12:05 | Emergency (ER) | payer OTHER ==
[~2022-12-26 12:05] MED LIST changes: +CEPH500C PO
[2022-12-26] MEDS ORDERED: NS IV 1000 ML 1,000 ML IV STA (12:34)
--- NOTE | 2022-12-26 12:34 | ED Abdominal Pain ---
General Chief Complaint: Abdominal/GI Problems Stated Complaint: KIDNEY STONES | PAIN IN RT LEG Source of Information: Patient Exam Limitations: No Limitations History of Present Illness Date Seen by Provider: Dec 26, 2022 Time Seen by Provider: 12:30 Initial Comments Patient is a 67-year-old male with a history of kidney stones, PE, DVT, chronic ear infection who presents the ED for lower abdominal pain. Pain has been ongoing for the past week. Constant described as sharp. Rates pain 7 out of 10. Patient states he has been on antibiotic for the past month and a half secondary to a left ear infection. Was recently switched to a different antibiotic that started with a "C" 1 week ago by ENT and this is when his symptoms started. Pain does not radiate. Denies any vomiting. Reports diarrhea during this past week. Reports at least 10 episodes daily without any mucus. Noted some bright red blood in the stool today and a previous day. Patient reports small amount of stool. Patient is currently on Eliquis for history of PE 2 to 3 years ago. Denies any chest pain or shortness of breath. patient suffered a DVT in his right leg. Denies of any fever but reports chills last night. And noted to denies of any pain with urination or frequent urination. He was seen here 4 days ago potentially passed a stone. He was placed on Keflex. Patient has not followed up with urology. Patient denies history of inflammatory bowel disease. Denies any chest pain, cough, shortness of breath, headache, dizziness. He does report some back pain but does not feel like this is related to his symptoms today Allergies and Home Medications Allergies Coded Allergies: No Known Drug Allergies (Unverified , 07/03/22) Patient Home Medication List Home Medication List Reviewed: Yes Benzonatate (Tessalon Perles) 100 Mg Capsule, 200 MG PO TID Prescribed by: ANNE TREVIZO on 07/03/221658 Cephalexin (Cephalexin) 500 Mg Tablet, 500 MG PO BID Prescribed by: ANNE TREVIZO on 12/10/222013 Cephalexin (Cephalexin) 500 Mg Capsule, 500 MG PO BID Prescribed by: SISI FARRAR on 12/22/22 102 Ciprofloxacin HCl (Ciprofloxacin HCl) 500 Mg Tablet, 500 MG PO BID PRN Prescribed by: ANNE TREVIZO on 12/26/22 1449 Doxycycline Monohydrate (Doxycycline Monohydrate) 100 Mg Capsule, 100 MG PO BID Prescribed by: ANNE TREVIZO on 07/03/22 165 Hydrocodone/Acetaminophen (Hydrocodone-Acetamin 5-325 mg) 5 Mg-325 Mg Tablet, 1 TAB PO Q4H PRN for PAIN-MODERATE (5-7) Prescribed by: ANNE TREVIZO on 12/10/221918 Ondansetron (Ondansetron Odt) 4 Mg Tab.rapdis, 4 MG SL Q4H PRN for NAUSEA/VOMITING Prescribed by: ANNE TREVIZO on 12/10/221918 Prednisone (Prednisone) 20 Mg Tab, 40 MG PO DAILY Prescribed by: ANNE TREVIZO on 07/03/22 170 Tamsulosin HCl (Flomax) 0.4 Mg Cap, 0.4 MG PO DAILY Prescribed by: ANNE TREVIZO on 12/10/221918 Review of Systems Review of Systems Constitutional: chills, malaise, weakness EENTM: No Blurred Vision, No Double Vision, No Eye Pain Respiratory: Denies Cough, Denies Orthopnea Cardiovascular: Denies Chest Pain Gastrointestinal: Abdominal Pain, Diarrhea; Denies Nausea Genitourinary: Denies Burning, Denies Discharge, Denies Drainage, Denies Frequency, Denies Flank Pain Musculoskeletal: No back pain, No joint pain Skin: No change in color, No change in hair/nails All Other Systems Reviewed Negative Unless Noted: Yes Past Xzcpuvr-Owbsbb-Kfhhws Hx Patient Social History Tobacco Use?: No Substance use?: No Alcohol Use?: No Pt feels they are or have been: No Immunizations Up To Date Influenza Vaccine Up-to-Date: No; Not Current Past Medical History Surgery/Hospitalization HX: ANGELLA, RT SHOULDER, DVT RT LEG Surgeries: Yes Gallbladder, Orthopedic Respiratory: Yes Pulmonary Embolism Cardiac: Yes Deep Vein Thrombosis, High Cholesterol Neurological: No Gastrointestinal: Yes Gastroesophageal Reflux Family Medical History No Pertinent Family Hx Physical Exam Vital Signs Vital Signs - First Documented 12/26/22 12:15 Temp 37.0 Pulse 83 Resp 14 B/P (MAP) 131/82 (98) Pulse Ox 95 O2 Delivery Room Air Capillary Refill : Height/Weight/BMI Height: '" Weight: lbs. oz. kg; 30.00 BMI Method: General Appearance: WD/WN, no apparent distress HEENT: PERRL/EOMI, normal ENT inspection, pharynx normal, other (Left TM with some mild erythema and scar tissue right TM with erythema.) Neck: non-tender, full range of motion Respiratory: chest non-tender, lungs clear, normal breath sounds, no respiratory distress Cardiovascular: regular rate, rhythm, no edema, no gallop, no JVD Gastrointestinal: normal bowel sounds, non tender, soft, no organomegaly Extremities: normal range of motion, non-tender, normal inspection Back: normal inspection, no CVA tenderness, no vertebral tenderness Neurologic/Psychiatric: branch mechanic II-XII nml as tested, no motor/sensory deficits, alert, normal mood/affect, oriented x 3 Skin: normal color, warm/dry Progress/Results/Core Measures Results/Orders Lab Results Laboratory Tests Test 12/26/22 12:40 12/26/22 12:46 Range/Units White Blood Count 9.6 4.3-11.0 10^3/uL Red Blood Count 4.80 4.30-5.52 10^6/uL Hemoglobin 13.8 13.3-17.7 g/dL Hematocrit 41 40-54 % Mean Corpuscular Volume 86 80-99 fL Mean Corpuscular Hemoglobin 29 25-34 pg Mean Corpuscular Hemoglobin Concent 33 32-36 g/dL Red Cell Distribution Width 14.2 10.0-14.5 % Platelet Count 269 130-400 10^3/uL Mean Platelet Volume 9.1 9.0-12.2 fL Immature Granulocyte % (Auto) 0 % Neutrophils (%) (Auto) 64 42-75 % Lymphocytes (%) (Auto) 19 12-44 % Monocytes (%) (Auto) 13 H 0-12 % Eosinophils (%) (Auto) 3 0-10 % Basophils (%) (Auto) 1 0-10 % Neutrophils # (Auto) 6.2 1.8-7.8 10^3/uL Lymphocytes # (Auto) 1.8 1.0-4.0 10^3/uL Monocytes # (Auto) 1.2 H 0.0-1.0 10^3/uL Eosinophils # (Auto) 0.3 0.0-0.3 10^3/uL Basophils # (Auto) 0.1 0.0-0.1 10^3/uL Immature Granulocyte # (Auto) 0.0 0.0-0.1 10^3/uL Sodium Level 136 135-145 MMOL/L Potassium Level 3.4 L 3.6-5.0 MMOL/L Chloride Level 102 98-107 MMOL/L Carbon Dioxide Level 22 21-32 MMOL/L Anion Gap 12 5-14 MMOL/L Blood Urea Nitrogen 11 7-18 MG/DL Creatinine 0.78 0.60-1.30 MG/DL Estimat Glomerular Filtration Rate 97 BUN/Creatinine Ratio 14 Glucose Level 91 70-105 MG/DL Calcium Level 9.0 8.5-10.1 MG/DL Corrected Calcium 8.9 8.5-10.1 MG/DL Magnesium Level 1.7 1.6-2.4 MG/DL Total Bilirubin 0.6 0.1-1.0 MG/DL Aspartate Amino Transf (AST/SGOT) 32 5-34 U/L Alanine Aminotransferase (ALT/SGPT) 37 0-55 U/L Alkaline Phosphatase 74 40-136 U/L C-Reactive Protein High Sensitivity 4.34 H 0.00-0.50 MG/DL Total Protein 6.4 6.4-8.2 GM/DL Albumin 4.1 3.2-4.5 GM/DL Lipase 18 8-78 U/L Urine Color YELLOW Urine Clarity CLEAR Urine pH 5.5 5-9 Urine Specific [place] 1.025 H 1.016-1.022 Urine Protein NEGATIVE NEGATIVE Urine Glucose (UA) NEGATIVE NEGATIVE Urine Ketones TRACE H NEGATIVE Urine Nitrite NEGATIVE NEGATIVE Urine Bilirubin 1+ H NEGATIVE Urine Urobilinogen 0.2 < = 1.0 MG/DL Urine Leukocyte Esterase NEGATIVE NEGATIVE Urine RBC (Auto) NEGATIVE NEGATIVE Urine RBC RARE /HPF Urine WBC RARE /HPF Urine Crystals NONE /LPF Urine Bacteria NEGATIVE /HPF Urine Casts NONE /LPF Urine Mucus LARGE H /LPF Urine Culture Indicated NO My Orders Orders - CATERINA HUTCHISON Ua Culture If Indicated (12/26/22 12:09) Cbc With Automated Diff (12/26/22 12:28) Comprehensive Metabolic Panel (12/26/22 12:28) Lipase (12/26/22 12:28) Hs C Reactive Protein (12/26/22 12:28) Magnesium (12/26/22 12:28) Abdomen/Kub 1view (12/26/22 12:30) Ns Iv 1000 Ml (Ns Iv 1000 Ml) (12/26/22 12:34) Us Venous Lower Ext Rt (12/26/22 14:07) Knee, Right, 3 Views (12/26/22 14:07) Vital Signs/I&O 12/26/22 12:15 Temp 37.0 Pulse 83 Resp 14 B/P (MAP) 131/82 (98) Pulse Ox 95 O2 Delivery Room Air Departure Communication (PCP) Patient is a 67-year-old male with a known history of left ureter stone presents to ED with lower abdominal pain for the past week. States he has been on several different antibiotics which she cannot recall for UTIs and left ear infection. States he is currently on a medication that starts with a C. Not able to locate this. Was prescribed by ENT for his chronic left ear infection. Patient was seen here December 23 had a work-up with a CT scan that showed a potential past ureter stone. Was discharged with Keflex. Microbiology report of his urine was positive for Klebsiella resistant to Keflex. He still have some mild urinary symptoms. Denies any vomiting but reports diarrhea for the past week when he started this new antibiotic. He stopped the antibiotic. Generalized lab work was ordered with urinalysis. CBC, CMP grossly unremarkable. Urinalysis without strong evidence of infection. Abdominal x-ray did not note any calcification. Does not appear in acute distress. Suggest obtaining a stool culture but patient was not able to provide a bowel movement. Suspect likely colitis. Did note a small amount of bright red blood in his stool. Normal hemoglobin. Unlikely this is invasive. Due to his recent positive urinary culture as well as having some symptoms will discharge with Cipro at this time as appears susceptible. Recommend stopping all other antibiotics at this time. Suggest taking probiotics. He states the Imodium seems to be working. I do not think CT scan is needed at this time. Does not appear to have acute abdomen. Recommend follow-up your PCP next week which she does [facility] [place] If any worsening symptoms such as fever, abdominal pain, bloody stools return back to ED. Patient was complaining of right posterior knee pain. History of DVT currently on Eliquis. Obtained a ultrasound which was negative for DVT. X-ray was negative for fracture or severe joint effusion the right knee. Normal active range of motion. Suspect this is more arthritic. Recommend Tylenol. Orthopedic outpatient follow-up in 7 to 10 days. Return precaution were discussed Impression Primary Impression: Abdominal pain Disposition: 01 HOME, SELF-CARE Condition: Stable Departure-Patient Inst. Decision time for Depature: 14:47 Referrals: ALIE BRUNSON APRN (PCP/Family) Primary Care Physician Patient Instructions: Abdominal Pain, Adult ED Add. Discharge Instructions: Do not take any other antibiotics besides a Cipro. Recommend taking obne-jor-cgovhwa probiotics. Recommend staying hydrated. Follow-up with your PCP next week for reevaluation All discharge instructions reviewed with patient and/or family. Voiced understanding. Scripts Ciprofloxacin HCl (Ciprofloxacin HCl) 500 Mg Tablet 500 MG PO BID PRN for 5 Days, #10 TAB Prov: CATERINA HUTCHISON 12/26/22 CATERINA HUTCHISON Dec 26, 2022 12:34
[2022-12-26 12:51] LABS: BASOPHILS # (AUTO) 0.1 10^3/uL (0.0-0.1); BASOPHILS % (AUTO) 1 % (0-10); EOSINOPHILS # (AUTO) 0.3 10^3/uL (0.0-0.3); EOSINOPHILS % (AUTO) 3 % (0-10); HEMATOCRIT 41 % (40-54); HEMOGLOBIN 13.8 g/dL (13.3-17.7); LYMPHOCYTES # (AUTO) 1.8 10^3/uL (1.0-4.0); LYMPHOCYTES % (AUTO) 19 % (12-44); MEAN CORPUSCULAR HEMOGLOBIN 29 pg (25-34); MEAN CORPUSCULAR HGB CONC 33 g/dL (32-36); MEAN CORPUSCULAR VOLUME 86 fL (80-99); MEAN PLATELET VOLUME 9.1 fL (9.0-12.2); MONOCYTES # (AUTO) 1.2 10^3/uL (0.0-1.0); MONOCYTES % (AUTO) 13 % (0-12); NEUTROPHILS # (AUTO) 6.2 10^3/uL (1.8-7.8); NEUTROPHILS % (AUTO) 64 % (42-75); PLATELET COUNT 269 10^3/uL (130-400); WHITE BLOOD COUNT 9.6 10^3/uL (4.3-11.0)
[2022-12-26 12:59] LABS: ALBUMIN 4.1 GM/DL (3.2-4.5)
[2022-12-26 13:00] LABS: POTASSIUM 3.4 MMOL/L (3.6-5.0)
[2022-12-26 13:02] LABS: TOTAL PROTEIN 6.4 GM/DL (6.4-8.2)
[2022-12-26 13:04] LABS: BACTERIA,URINE NEGATIVE /HPF; BILIRUBIN,URINE 1+ (NEGATIVE); CLARITY,URINE CLEAR; COLOR,URINE YELLOW; GLUCOSE, URINE (UA) NEGATIVE (NEGATIVE); KETONES,URINE TRACE (NEGATIVE); LEUKOCYTE ESTERASE ,URINE NEGATIVE (NEGATIVE); NITRITE,URINE NEGATIVE (NEGATIVE); PH,URINE 5.5 (5-9); PROTEIN,URINE NEGATIVE (NEGATIVE); RBC,URINE RARE /HPF; WBC,URINE RARE /HPF
[2022-12-26 13:04] LABS: BILIRUBIN,TOTAL 0.6 MG/DL (0.1-1.0)
[2022-12-26 13:06] LABS: CREATININE SERUM 0.78 MG/DL (0.60-1.30)
[2022-12-26 13:08] LABS: MAGNESIUM 1.7 MG/DL (1.6-2.4)
--- NOTE | 2022-12-26 13:46 | Diagnostic Imaging Report ---
INDICATION: Lower abdominal pain KUB Lung bases are clear. Bowel gas pattern is normal. There are no pathologic masses or calcifications. IMPRESSION: Unremarkable abdomen. Dictated by: Dictated on workstation # [id number]
--- NOTE | 2022-12-26 14:39 | Diagnostic Imaging Report ---
INDICATION: Right knee pain. FINDINGS: Three views of the right knee show no fracture, dislocation, or pathologic effusion. IMPRESSION: Negative right knee. Dictated by: Dictated on workstation # [id number]
[2022-12-26] MEDS ORDERED: CIPR500T5 PO (14:49)
--- NOTE | 2022-12-26 14:58 | Diagnostic Imaging Report ---
PROCEDURE: US right lower extremity venous. TECHNIQUE: Multiple real-time grayscale images were obtained over the right lower extremity in various projections. Additional spectral analysis and color Doppler duplex images were also obtained. INDICATION: Right lower extremity pain EXAMINATION: Grayscale and color Doppler evaluation of the deep veins of the right lower extremity were performed with waveform analysis. FINDINGS: Continuous venous flow is present. No intraluminal filling defect is identified. There is normal compressibility and response to augmentation. No abnormal perivascular fluid collection is identified. IMPRESSION: No ultrasound evidence of right lower extremity deep venous thrombosis. Dictated by: Dictated on workstation # [id number]
[2022-12-26 15:28] VITALS: BP 103/70
== END 2022-12-26 15:29 | disposition home or self-care (01) ==
LOC: EDUNIT# 12:05 → ER 12:06
DX: R10.30 Lower abdominal pain, unspecified (principal); Z86.711 Personal history of pulmonary embolism; Z86.718 Personal history of other venous thrombosis and embolism; Z79.01 Long term (current) use of anticoagulants; Z87.19 Personal history of other diseases of the digestive system
CPT/HCPCS: 36415; 73562; 74018; 80053; 81000; 83690; 83735; 85025; 86141